=== PATIENT | female | born 1935 | race Caucasian/White ===

== ENCOUNTER 2021-08-06 10:39 | Emergency (ER) | payer OTHER, BC ==
[~2021-08-06] VITALS: Ht 152.4 cm; Wt 75.7 kg
[2021-08-06 10:46] VITALS: BP 155/84
--- NOTE | 2021-08-06 11:05 | NUR ---
86/F BIB SON WITH C/O LOWER BACK PAIN X2 WEEKS, DENIES RECENT INJURY OR TRAUMA, STATES SHE WOKE UP WITH THE PAIN. REPORTS TAKING MELOXICAM WITH MILD RELIEF, DENIES DYSURIA, N/V/D, PATIENT AMBULATORY WITH AID OF PERSONAL CANE UPON ARRIVAL TO ED.
--- NOTE | 2021-08-06 11:30 | NUR ---
PATIENT PROVIDED URINE SAMPLE AT THIS TIME.
[2021-08-06] MEDS ORDERED: KETOROLAC 60 MG/2 ML VIAL IM ONE (11:40)
--- NOTE | 2021-08-06 11:40 | NUR ---
URINE WALKED TO LAB AND HANDED TO LEONARDO WATSON
[2021-08-06 12:04] LABS: APPEARANCE,URINE CLEAR (CLEAR); BILIRUBIN,URINE NEGATIVE (NEGATIVE); BLOOD, URINE NEGATIVE (NEGATIVE); COLOR,URINE YELLOW (YELLOW); LEUKOCYTE ESTERASE ,URINE NEGATIVE (NEGATIVE); NITRITE, URINE NEGATIVE (NEGATIVE); UGLUCOSE NEGATIVE (NEGATIVE)
--- NOTE | 2021-08-06 12:12 | NUR ---
DR. COTTON EVALUATING PATIENT AT BEDSIDE.
[2021-08-06] MEDS ORDERED: ACET-8386 PO (12:21)
[2021-08-06] MEDS ORDERED: IBUP-2213 PO (12:21)
--- NOTE | 2021-08-06 12:45 | NUR ---
Patient discharged with v/s stable. Written and verbal after care instructions given and explained. Patient alert, oriented and verbalized understanding of instructions. Ambulatory with steady gait. All questions addressed prior to discharge. ID band removed. Patient advised to follow up with PMD. Rx of IBU,NORCO given. Patient educated on indication of medication including possible reaction and side effects. Opportunity to ask questions provided and answered.
[2021-08-06 12:53] VITALS: BP 145/88
== END 2021-08-06 12:45 | disposition home or self-care (01) ==
LOC: MED 10:39
DX: M54.50 Low back pain, unspecified (principal); I10 Essential (primary) hypertension; Z98.890 Other specified postprocedural states
CPT/HCPCS: 81003; 96372; 99283; J1885